=== PATIENT | male | born 2000 | race Caucasian/White ===

== ENCOUNTER 2021-01-17 19:27 | Emergency (ER) | payer OTHER ==
[2021-01-17] MEDS ORDERED: Ketorolac Tromethamine 30 MG/ML VIAL ONE (20:45)
[2021-01-17] MEDS ORDERED: Cyclobenzaprine 10 MG TAB ONE (20:46)
== END 2021-01-17 21:58 | disposition home or self-care (01) ==
LOC: CSHERS 19:27
DX: S60.012A Contusion of left thumb without damage to nail, initial encounter (principal); M25.512 Pain in left shoulder; M54.9 Dorsalgia, unspecified; V43.52XA Car driver injured in collision with other type car in traffic accident, initial encounter; W22.11XA Striking against or struck by driver side automobile airbag, initial encounter
CPT/HCPCS: 96372; J1885